=== PATIENT | female | born 1965 | race Caucasian/White ===

== ENCOUNTER 2016-12-28 14:32 | Emergency (ER) | payer BC, OTHER ==
[~2016-12-28] VITALS: Ht 165.1 cm; Wt 89.9 kg
[~2016-12-28 14:32] MED LIST: LEVO-459 PO
[2016-12-28 14:46] VITALS: TEMP 36.5; Ht 165.1 cm; Wt 89.9 kg
[2016-12-28] MEDS ORDERED: SODIUM CHLORIDE 0.9% 1000ML 1,000 ML IV STA (15:41)
[2016-12-28] MEDS ORDERED: ONDANSETRON INJ 2 MG/ML 2 ML VIAL IV STA (15:41)
[2016-12-28] MEDS ORDERED: DiphenhydrAMINE HCL 50 MG/ML VIAL IV STA (15:41)
[2016-12-28] MEDS ORDERED: DEXAMETHASONE SOD INJ 4 MG/ML VIAL IV STA (15:41)
[2016-12-28] MEDS ORDERED: KETOROLAC TROMETHAMINE 30 MG/ML VIAL IV STA (15:41)
[2016-12-28] MEDS ORDERED: ACET-1256 PO (16:06)
[2016-12-28] MEDS ORDERED: LEVO150T9 PO (16:06)
[2016-12-28] MEDS ORDERED: MECL1TAB42 PO (16:06)
[2016-12-28 16:09] LABS: MEAN CELL VOLUME 90.3 fL (80-100); MEAN CORPUSCULAR HEMOGLOBIN 29.8 pg (25-34); MEAN PLATELET VOLUME 10.6 fL (7.4-10.4); PLATELET COUNT 261 K/uL (130-400); RED BLOOD COUNT 4.43 M/uL (4.2-5.4); WHITE BLOOD COUNT 9.27 K/uL (4.8-10.8)
[2016-12-28 16:32] LABS: BUN/CREATININE RATIO 20.2 (10-20); CALCIUM 8.8 mg/dl (8.5-10.1); CREATININE 0.84 mg/dl (0.60-1.20); POTASSIUM 3.9 mmol/L (3.5-5.1)
[2016-12-28 16:43] LABS: THYROID STIMULATING HORMONE 0.171 uIu/ml (0.300-4.500)
[2016-12-28 16:46] LABS: MANUAL MICROSCOPIC REQUIRED? YES; URINE APPEARANCE CLEAR (CLEAR); URINE BILIRUBIN NEG (NEG); URINE COLOR YELLOW; URINE NITRITE NEG (NEG); URINE SPECIFIC GRAVITY >= 1.030 (1.000-1.030); UROBILINOGEN NEG (NEG)
--- NOTE | 2016-12-28 16:52 | DIAGNOSTIC IMAGING REPORT ---
CT SCAN OF THE BRAIN WITHOUT IV CONTRAST CLINICAL HISTORY: Headache. Vomiting and dizziness. COMPARISON STUDY: No priors. TECHNIQUE: Unenhanced axial CT scan of the brain is performed from the vertex to the skull base. Automated dose control exposure was utilized. CT DOSE: 537.48 mGy.cm FINDINGS: Brain parenchyma: The brain parenchyma is normal in appearance. There is no hemorrhage, mass effect, or evidence of acute territorial ischemia by CT criteria. Diop-white matter is preserved. No extra-axial fluid collection is seen. Ventricles, sulci, cisterns: Normal in configuration. Intracranial vasculature: The visualized intracranial vasculature at the skull base is normal in appearance. Calvarium: Unremarkable. Sinuses and mastoids: The visualized paranasal sinuses are clear. The mastoid air cells are well pneumatized. Orbits: The bony orbits are grossly intact. IMPRESSION: No acute intracranial abnormality. Electronically signed by: Marcelo Burk M.D. 12/28/2016 4:50 PM Dictated Date/Time: 12/28/2016 4:49 PM
[2016-12-28 17:00] LABS: REVIEW REQ? NO
[2016-12-28 17:02] LABS: URINE BACTERIA NEG (NEG); URINE RBC 0-4 /hpf (0-4); URINE WBC 0 /hpf (0-5)
[2016-12-28 18:39] VITALS: BP 117/85; PULSE 86; O2SAT 97
--- NOTE | 2016-12-28 19:48 | EMERGENCY ROOM VISIT NOTE ---
ED Visit Note First contact with patient: 15:16 Chief Complaint: Headache. History of Present Illness: Ms. Monk is a 51-year-old white female who ambulates into the ED accompanied by a male friend complaining of a headache. Historically denies any previous history of headaches. Patient reports she developed a slow onset of a severe headache that started approximately 10 days ago. She describes her headache as a bitemporal bifrontal achy pain. At that time she rated her discomfort 10/10. Her pain was nonradiating. Over the next few days the headache decreased in intensity and responded to ibuprofen. This past Friday, 6 days ago, the headache became severe again. She was seen by her PCP and reports that testing was ordered and is supposed to take place this coming Friday. Currently she still places her discomfort and the bitemporal bifrontal areas. She continues to describe it as an achy sensation. Prior to coming to the hospital, proximal 2 hours ago she rated her discomfort 10/10. She took 2 regular strength Tylenol and on arrival at the hospital she now rates her discomfort 5/10. He continues to be nonradiating. She has not identified any aggravating factors related to the pain. Associated with her pain she reports she has been having intermittent lightheadedness and intermittent dizziness, intermittent blurred vision, intermittent sharp neck pain with shoulder movements and last night she had 1 episode of vomiting without nausea. Additionally she also reports she's had mild fevers over the last day ranging from 99.5-101.2F. Lastly she does report that she has been feeling very sleepy over the last 2 weeks and reports that anytime she sits down she almost always falls asleep. She also feels intermittently confused; loses track of what she is attempting to do i.e. today she was feeding her father and almost forgotten what she was doing. She denies recent head trauma, hearing changes, light sensitivity, tearing, ear drainage, upper respiratory tract symptoms, throat pain, neck stiffness, cough, wheezing, shortness of breath, chest pain, palpitations, abdominal pain, diarrhea, constipation, rectal bleeding, skin eruptions, skin color changes, syncope. Review of Systems: As noted above in history of present illness. All body systems were reviewed and found to be negative as noted above. Past Medical History: As previously noted, hypothyroidism, dizziness, fibromyalgia, asthma Current Medications: Synthroid, tramadol Allergies to Medications: Sulfa and penicillin. Social History: Patient is currently employed; she feels safe in her home environment; Physical Examination: Vital Signs: Date Time Temp Pulse Resp B/P Pulse Ox O2 Delivery O2 Flow Rate FiO2 12/28/16 18:39 86 18 117/85 97 12/28/16 17:30 77 18 116/69 96 Room Air 12/28/16 16:33 79 18 100/65 97 Room Air 12/28/16 16:09 85 109/72 96 Room Air 86 135/83 94 111/77 12/28/16 14:46 36.5 99 20 145/82 94 Room Air GENERAL: 51-year-old female in mild distress due to symptoms, nontoxic-appearing , afebrile and hemodynamically stable. NEUROLOGICAL: Awake, alert and oriented to person, place and time. Answering questions appropriately and following commands. Normal gait. Good hand eye coordination. No focal motor or sensory deficits. Cranial nerves II through XII grossly intact. Romberg test negative. Pronator drift test negative. Good short-term and long-term recall. Normal rapid alternating movements of the hands and fingers.Able to spell backwards 5/5 muscle strength in all movements of the upper and lower extremities. SKIN: Warm, dry and pink. No soft tissue eruptions or trauma noted. HEENT: Atraumatic and normocephalic. PERRLA. EOMI without nystagmus. Sclera white and conjunctiva pink. No drainage from naris. Oral cavity moist and pink. Pharynx is nonerythematous or edematous. Speech normal. No lymphadenopathy. Trachea midline. No jugular venous distention. No carotid bruits. BACK: Mild tenderness over the C6 through T1 area without bony deformity, bony crepitus, swelling or ecchymosis. No tenderness throughout the rest of the thoracic or lumbar spine. No nuchal rigidity or dizziness. Full range of motion of the cervical spine. No CVA tenderness. THORAX: Lungs sounds are clear to auscultation and equal bilaterally with symmetrical chest wall. No wheezing, rales or rhonchi. No crepitus, tenderness , subcutaneous air or deformities noted. HEART: Regular rate and rhythm. No gallops, rubs or murmurs are appreciated. ABDOMEN: Flat, soft and nontender. Positive bowel sounds in all quadrants. No guarding, rigidity or organomegaly. EXTREMITIES: Moves all extremities well on command and with purpose. All distal neurovascular statuses are intact and equal bilaterally. No calf tenderness or cords. ED Course: Patient is assessed as noted above. Laboratory Testing: Test 12/28/16 16:00 12/28/16 16:35 Range/Units White Blood Count 9.27 4.8-10.8 K/uL Red Blood Count 4.43 4.2-5.4 M/uL Hemoglobin 13.2 12.0-16.0 g/dL Hematocrit 40.0 37-47 % Mean Corpuscular Volume 90.3 80-100 fL Mean Corpuscular Hemoglobin 29.8 25-34 pg Mean Corpuscular Hemoglobin Concent 33.0 32-36 g/dl RDW Standard Deviation 41.4 36.4-46.3 fL RDW Coefficient of Variation 12.5 11.5-14.5 % Platelet Count 261 130-400 K/uL Mean Platelet Volume 10.6 7.4-10.4 fL Erythrocyte Sedimentation Rate 15 0-21 mm/hr Sodium Level 142 136-145 mmol/L Potassium Level 3.9 3.5-5.1 mmol/L Chloride Level 106 98-107 mmol/L Carbon Dioxide Level 27 21-32 mmol/L Anion Gap 9.0 3-11 mmol/L Blood Urea Nitrogen 17 7-18 mg/dl Creatinine 0.84 0.60-1.20 mg/dl Est Creatinine Clear Calc Drug Dose 86.8 ml/min Estimated GFR () 92.6 Estimated GFR (Non- 79.9 BUN/Creatinine Ratio 20.2 10-20 Random Glucose 99 70-99 mg/dl Calcium Level 8.8 8.5-10.1 mg/dl Total Bilirubin 0.8 0.2-1 mg/dl Direct Bilirubin 0.2 0-0.2 mg/dl Aspartate Amino Transf (AST/SGOT) 13 15-37 U/L Alanine Aminotransferase (ALT/SGPT) 13 12-78 U/L Alkaline Phosphatase 67 45-117 U/L Total Protein 7.2 6.4-8.2 gm/dl Albumin 3.9 3.4-5.0 gm/dl Thyroid Stimulating Hormone (TSH) 0.171 0.300-4.500 uIu/ml Free Thyroxine 1.11 0.80-1.60 ng/dl Free Triiodothyronine 2.02 2.30-4.20 pg/ml Urine Color YELLOW Urine Appearance CLEAR CLEAR Urine pH 6.0 4.5-7.5 Urine Specific [place] >= 1.030 1.000-1.030 Urine Protein TRACE NEG Urine Glucose (UA) NEG NEG Urine Ketones NEG NEG Urine Occult Blood TRACE NEG Urine Nitrite NEG NEG Urine Bilirubin NEG NEG Urine Urobilinogen NEG NEG Urine Leukocyte Esterase NEG NEG Urine RBC 0-4 0-4 /hpf Urine WBC 0 0-5 /hpf Urine Epithelial Cells 10-20 0-5 /lpf Urine Bacteria NEG NEG Head CT: Was reviewed by myself and read by the radiologist showing no acute intracranial abnormalities or skull fractures. Patient was hydrated with normal saline, she was given 4 mg of Zofran, 30 mg of Toradol, 10 mg of Decadron and 25 mg of Benadryl IV for her symptoms. Patient was reassessed multiple times during her stay in the emergency department. Patient's case was reviewed with Dr. Hernandez; we agreed on diagnostic approach , treatment, disposition and plan. Patient was educated about tonight's findings and instructed on history and the plan; she verbalizes understanding and agreement with this plan. Clinical Impression: Acute headache. Abnormal thyroid labs Decision-Making: Initially my differential diagnosis I considered CVA, meningitis, thyroid dysfunction, intercranial bleed, mass effect and other causes. Disposition: Patient discharged home in stable condition accompanied by her ex- ; prior to departure she was reassessed and subjectively reported that she was pain and symptom-free. Plan: Patient was encouraged to use her prescribed tramadol every 6 hours as needed for headaches and alternate with 650 mg of acetaminophen every 3 hours. Patient was encouraged to stay well-hydrated and continue her other medications. Patient was encouraged to follow-up with her family physician on Friday; so that her family physician can review today's results and adjust thyroid medications and any additional testing that may be necessary. Patient was encouraged return the ED for worsening headache, fevers, any abnormal neurological symptoms or any new/concerning symptoms.
== END 2016-12-28 18:41 | disposition home or self-care (01) ==
LOC: C.EDB 14:35
DX: R51 Headache (principal); R79.89 Other specified abnormal findings of blood chemistry; E03.9 Hypothyroidism, unspecified; J45.909 Unspecified asthma, uncomplicated; Z79.899 Other long term (current) drug therapy; Z88.0 Allergy status to penicillin; Z88.2 Allergy status to sulfonamides

== ENCOUNTER 2017-01-04 11:07 | Emergency (ER) | payer BC ==
[~2017-01-04] VITALS: Ht 165.1 cm; Wt 90.0 kg
[~2017-01-04 11:07] MED LIST changes: +ACET-1256 PO; +LEVO150T9 PO; +MECL1TAB42 PO
[2017-01-04 11:17] VITALS: TEMP 37.9; Ht 165.1 cm; Wt 90.0 kg
[2017-01-04] MEDS ORDERED: SYN137 PO (11:42)
[2017-01-04] MEDS ORDERED: LSN25 PO (11:42)
--- NOTE | 2017-01-04 12:15 | EMERGENCY ROOM VISIT NOTE ---
History Report prepared by Darian: Daja Granger Under the Supervision of: Dr. Bon Cyr M.D. First contact with patient: 12:04 Chief Complaint: FEVER Stated Complaint: FEVER History of Present Illness The patient is a 51 year old female who presents to the Emergency Room with complaints of a persistent, worsening fever that began several days ago. She currently rates her discomfort as a 5/10 in severity. The patient notes that she was evaluated in the emergency department a week ago for a headache. She states that since then, her headache has subsided. The patient states that she has been experiencing a fever, cough, nausea, and vomiting. She denies any diarrhea or urinary symptoms. The patient notes back pain secondary to her persistent cough. The patient's states that the patient's fever was 103 degrees Fahrenheit prior to coming to the emergency department. He states that he gave the patient Tylenol before coming to the emergency department. The patient states that the Tylenol alleviates her symptoms temporarily, but states that once it is out of her system, her temperature rises She states that she has a history of a hysterectomy. The patient states that she is a previous smoker, noting that she quit 6 years ago. She denies any sick contacts. The patient states that she had a follow up appointment with her PCP last week and had her thyroid medications adjusted. Source of History: patient, spouse/significant other () Onset: several days ago Position: other (global) Symptom Intensity: 5/10 Quality: other (fever) Timing: worsening, other (persistent) Modifying Factors (Relieving): tylenol Associated Symptoms: + cough, + nausea, + vomiting, No diarrhea, No headache , No urinary symptoms Review of Systems All systems have been listed, reviewed, and are negative other than those previously mentioned. Please see Additional Medical History Sheet. Past Medical & Surgical Medical Problems: (1) Asthma (2) Bronchitis Family History Diabetes mellitus Gallbladder disease Heart disease Hypertension Kidney disease Kidney stones Lung disease Seizures Social History Smoking Status: Former Smoker Smokeless Tobacco Use: No Alcohol Use: none Marital Status: single Housing Status: lives with significant other Occupation Status: employed Current/Historical Medications Scheduled Levofloxacin (Levaquin), 500 MG PO DAILY Levothyroxine Sodium (Levothyroxine Sodium), 137 MCG PO QAM Lisinopril (Lisinopril), 2.5 MG PO QAM Allergies Coded Allergies: Penicillins (Verified Allergy, Unknown, SHORTNESS OF BREATH, 01/04/17) Sulfa Antibiotics (Verified Allergy, Unknown, HIVES, SOB, 01/04/17) Physical Exam Vital Signs Date Time Temp Pulse Resp B/P Pulse Ox O2 Delivery O2 Flow Rate FiO2 01/04/17 14:11 94 18 100/69 96 Room Air 01/04/17 13:02 97 16 92/54 94 Room Air 01/04/17 11:17 37.9 124 18 107/68 96 Room Air Physical Exam GENERAL: Patient awake, alert, oriented x 3. Patient follows commands. Patient does not appear toxic. Patient is adequately hydrated and well- nourished. SKIN: No erythema, pallor, cyanosis or rash HEENT: Normal head, pupils equal, reactive to light and accommodation. Ears normal. Oral cavity and posterior pharynx appear normal. Neck: Without adenopathy, no neck vein distention. Neck is supple nontender without meningeal findings. LUNGS: Clear to auscultation. No wheezes, no rales, no rhonchi. HEART: Tachycardic rate, regular rhythm. No murmurs. No gallops. No rubs ABDOMEN: Obese. No masses, no rebound, no hepatomegaly or splenomegaly. EXTREMITIES: No signs of trauma. No pedal or pretibial edema. No calf or thigh tenderness. NEUROLOGIC: Cranial nerves II-XII within normal limits. No gross motor sensory function deficits. Medical Decision & Procedures ER Provider Diagnostic Interpretation: X ray results are stated below per my interpretation and the radiologist's interpretation. CHEST 2 VIEWS ROUTINE CLINICAL HISTORY: Cough. COMPARISON STUDY: No previous studies for comparison. FINDINGS: Lung volumes are normal. Lungs are clear. There is no pneumothorax or pleural effusion. Cardiac size is normal. Mediastinal contours are normal. There is no evidence of pulmonary edema. IMPRESSION: No acute cardiopulmonary findings. Electronically signed by: Jones Brumfield M.D. 01/04/2017 1:20 PM Dictated Date/Time: 01/04/2017 1:20 PM Laboratory Results 01/04/17 12:35 Red Blood Count 4.29, Mean Corpuscular Volume 89.7, Mean Corpuscular Hemoglobin 29.6, Mean Corpuscular Hemoglobin Concent 33.0, Mean Platelet Volume 11.0, Neutrophils (%) (Auto) 61.3, Lymphocytes (%) (Auto) 19.4, Monocytes (%) (Auto) 18.1, Eosinophils (%) (Auto) 0.6, Basophils (%) (Auto) 0.2, Neutrophils # (Auto ) 2.90, Lymphocytes # (Auto) 0.92, Monocytes # (Auto) 0.86, Eosinophils # (Auto ) 0.03, Basophils # (Auto) 0.01 01/04/17 12:35 Test 01/04/17 12:35 White Blood Count 4.74 K/uL (4.8-10.8) Red Blood Count 4.29 M/uL (4.2-5.4) Hemoglobin 12.7 g/dL (12.0-16.0) Hematocrit 38.5 % (37-47) Mean Corpuscular Volume 89.7 fL (80-100) Mean Corpuscular Hemoglobin 29.6 pg (25-34) Mean Corpuscular Hemoglobin Concent 33.0 g/dl (32-36) Platelet Count 177 K/uL (130-400) Mean Platelet Volume 11.0 fL (7.4-10.4) Neutrophils (%) (Auto) 61.3 % Lymphocytes (%) (Auto) 19.4 % Monocytes (%) (Auto) 18.1 % Eosinophils (%) (Auto) 0.6 % Basophils (%) (Auto) 0.2 % Neutrophils # (Auto) 2.90 K/uL (1.4-6.5) Lymphocytes # (Auto) 0.92 K/uL (1.2-3.4) Monocytes # (Auto) 0.86 K/uL (0.11-0.59) Eosinophils # (Auto) 0.03 K/uL (0-0.5) Basophils # (Auto) 0.01 K/uL (0-0.2) RDW Standard Deviation 41.0 fL (36.4-46.3) RDW Coefficient of Variation 12.7 % (11.5-14.5) Immature Granulocyte % (Auto) 0.4 % Immature Granulocyte # (Auto) 0.02 K/uL (0.00-0.02) Urine Color DK YELLOW Urine Appearance CLEAR (CLEAR) Urine pH 5.0 (4.5-7.5) Urine Specific [place] 1.034 (1.000-1.030) Urine Protein NEG (NEG) Urine Glucose (UA) NEG (NEG) Urine Ketones NEG (NEG) Urine Occult Blood NEG (NEG) Urine Nitrite NEG (NEG) Urine Bilirubin NEG (NEG) Urine Urobilinogen NEG (NEG) Urine Leukocyte Esterase NEG (NEG) Anion Gap 10.0 mmol/L (3-11) Est Creatinine Clear Calc Drug Dose 85.8 ml/min Estimated GFR () 91.3 Estimated GFR (Non- 78.8 BUN/Creatinine Ratio 16.8 (10-20) Calcium Level 8.5 mg/dl (8.5-10.1) Laboratory results as stated above per my review. Medications Administered Medications (Trade) Dose Ordered Sig/Eliu Route Start Time Stop Time Status Last Admin Dose Admin Albuterol (Ventolin Hfa Inhaler) 2 puffs NOW STAT INH 01/04/17 13:45 01/04/17 13:46 DC 01/04/17 13:45 2 PUFFS ECG Indication: other (fever, cough) Rate (beats per minute): 95 Rhythm: normal sinus Findings: no acute ischemic change, no ectopy ED Course 1205: Past medical records reviewed. The patient was evaluated in room A4B. A complete history and physical examination was performed. 1343: I reevaluated the patient and she is doing well. I discussed the exam findings with her and I discussed the treatment plan. She verbalized complete understanding and agreement. She is ready to go home once she has a breathing treatment.. 1345: Ordered Albuterol 2 puffs INH. Medical Decision Nurses notes reviewed. Medical history sheet reviewed. Differential diagnosis includes but is not limited to: pneumonia, upper respiratory infection, other viral infections, tachycardia. The patient is here with cough and fever. The patient is currently on Levaquin. The patient has had off-and-on fevers now for over 2 weeks. Multiple labs and imaging were obtained. Please see above. White count is not elevated. The patient does not have evidence of pneumonia. Clinically the patient does not have meningitis. The patient still has a cough and was treated with an albuterol inhaler. She will continue that at home. Patient was instructed to continue Tylenol as needed for fever. At this point, it appears that she has a viral cause her symptoms. Impression Primary Impression: Acute bronchitis Scribe Attestation The scribe's documentation has been prepared under my direction and personally reviewed by me in its entirety. I confirm that the note above accurately reflects all work, treatment, procedures, and medical decision making performed by me. Departure Information Dispostion Home / Self-Care Referrals No Doctor, Assigned (PCP) Forms HOME CARE DOCUMENTATION FORM, IMPORTANT VISIT INFORMATION Patient Instructions My [facility] Additional Instructions 2 puffs of Ventolin every 4 hours as needed for cough. 650 mg of Tylenol every 4 hours as needed for aches, pain or fever. Drink extra fluids. Follow-up with your family physician within the next 7 days. Return here sooner if your cough or fever are getting worse.
[2017-01-04 12:52] LABS: BASO % 0.2 %; BASO ABS # 0.01 K/uL (0-0.2); COMPLETE YES; EOS % 0.6 %; HEMATOCRIT 38.5 % (37-47); IG% 0.4 %; LYMPH % 19.4 %; LYMPH ABS # 0.92 K/uL (1.2-3.4); MEAN CELL VOLUME 89.7 fL (80-100); MEAN CORPUSCULAR HEMOGLOBIN 29.6 pg (25-34); MONO % 18.1 %; NEUT % 61.3 %; PLATELET COUNT 177 K/uL (130-400); RED BLOOD COUNT 4.29 M/uL (4.2-5.4); URINE APPEARANCE CLEAR (CLEAR); URINE BILIRUBIN NEG (NEG); URINE COLOR DK YELLOW; URINE NITRITE NEG (NEG); URINE SPECIFIC GRAVITY 1.034 (1.000-1.030); UROBILINOGEN NEG (NEG); WHITE BLOOD COUNT 4.74 K/uL (4.8-10.8); ZZUR CULT IF INDIC CLEAN CATCH NO
[2017-01-04 12:59] LABS: MANUAL MICROSCOPIC REQUIRED? NO; REVIEW REQ? NO
[2017-01-04 13:12] LABS: BUN/CREATININE RATIO 16.8 (10-20); CALCIUM 8.5 mg/dl (8.5-10.1); CREATININE 0.85 mg/dl (0.60-1.20); POTASSIUM 4.2 mmol/L (3.5-5.1)
--- NOTE | 2017-01-04 13:21 | DIAGNOSTIC IMAGING REPORT ---
CHEST 2 VIEWS ROUTINE CLINICAL HISTORY: Cough. COMPARISON STUDY: No previous studies for comparison. FINDINGS: Lung volumes are normal. Lungs are clear. There is no pneumothorax or pleural effusion. Cardiac size is normal. Mediastinal contours are normal. There is no evidence of pulmonary edema. IMPRESSION: No acute cardiopulmonary findings. Electronically signed by: Jones Brumfield M.D. 01/04/2017 1:20 PM Dictated Date/Time: 01/04/2017 1:20 PM
[2017-01-04] MEDS ORDERED: ALBUTEROL HFA 8 GM INHALER INH STA (13:45)
[2017-01-04 14:11] VITALS: BP 100/69; PULSE 94; O2SAT 96
== END 2017-01-04 14:38 | disposition home or self-care (01) ==
LOC: C.EDB 11:08 → C.EDA 14:38
DX: J20.9 Acute bronchitis, unspecified (principal); J45.909 Unspecified asthma, uncomplicated; Z87.891 Personal history of nicotine dependence; Z90.710 Acquired absence of both cervix and uterus; Z83.3 Family history of diabetes mellitus; Z82.49 Family history of ischemic heart disease and other diseases of the circulatory system; Z84.1 Family history of disorders of kidney and ureter; Z82.0 Family history of epilepsy and other diseases of the nervous system